=== PATIENT | female | born 1965 | race Caucasian/White ===

== ENCOUNTER 2021-12-26 13:15 | Emergency (ER) | payer OTHER ==
[~2021-12-26 13:15] MED LIST: BACTRIM DS TAB1 EACH PO; ETODOLAC500 MG PO; KEFLEX250 MG PO
[2021-12-26 13:50] LABS: BASOPHIL 0.2 % (0-2); EOSINOPHIL 0.1 % (0-5); HCT 46.1 % (37.0-47.0); HGB 16.1 g/dl (12.5-16.0); MCH 33.1 pg (25.0-31.0); MCHC 34.9 g/dL (32.0-36.0); MCV 94.9 fL (78.0-100.0); MONOCYTE 9.3 % (0-12); MPV 9.5 fL (6.0-9.5); NEUTROPHIL 78.1 % (41-80); NRBC 0; PLT 241 K/uL (150-400); RBC 4.86 M/uL (4.20-5.40); RDW 12.4 % (11.5-14.0); WBC 11.3 K/uL (4.0-10.5)
[2021-12-26 14:10] LABS: ALBUMIN 4.3 g/dL (3.4-5.0); BILIRUBIN - TOTAL 0.7 mg/dL (0.2-1.0); BUN/CREAT RATIO (CALC) 33.3 RATIO; CREATININE 0.84 mg/dL (0.51-0.95); GLOBULIN (CALCULATION) 3.6 g/dL; POTASSIUM 3.8 mmol/L (3.5-5.1); TOTAL PROTEIN 7.9 g/dL (6.4-8.2)
[2021-12-26 16:06] LABS: BILIRUBIN NEGATIVE (NEGATIVE); BLOOD TRACE-INTACT Ery/uL (NEGATIVE); CLARITY CLEAR (CLEAR); COLOR YELLOW (YELLOW); GLUCOSE (U) NORMAL (NORMAL); LEUKOCYTES NEGATIVE Leu/uL (NEGATIVE); NITRITE NEGATIVE (NEGATIVE); PROTEIN NEGATIVE (NEGATIVE); UROBILINOGEN 0.2 mg/dL (0.2-1.0)
[2021-12-26 16:11] LABS: AMPHETAMINES NEGATIVE (NEGATIVE); BARBITURATES NEGATIVE (NEGATIVE); ECSTASY (MDMA) NEGATIVE (NEGATIVE); HCG (URINE) SCREEN NEGATIVE (NEGATIVE); MARIJUANA (THC) POSITIVE (NEGATIVE); METHADONE NEGATIVE (NEGATIVE); OPIATES NEGATIVE (NEGATIVE); OXYCODONE NEGATIVE (NEGATIVE)
[2021-12-26 16:16] LABS: URINARY RBC RARE
[2021-12-26] MEDS ORDERED: ONDANSETRON ODT4 MG PO (16:39)
[2021-12-26] MEDS ORDERED: PEPCID40 MG PO (16:39)
== END 2021-12-26 16:52 | disposition home or self-care (01) ==
LOC: FER 13:15
PROVIDERS: Physician Assistant
DX: K20.90 Esophagitis, unspecified without bleeding (principal); Z91.040 Latex allergy status; Z88.8 Allergy status to other drugs, medicaments and biological substances
CPT/HCPCS: 36415; 80053; 80305; 81001; 83690; 84703; 85025; J2405; J7030; Q9967